=== PATIENT | female | born 1940 | race Caucasian/White ===

== ENCOUNTER 2017-04-03 10:52 | Inpatient (IN) | payer OTHER ==
[~2017-04-03] VITALS: Ht 165.1 cm; Wt 84.1 kg
[~2017-04-03 10:52] MED LIST: GABA-497 PO; OXY5T PO; [UNRECOGNIZED DRUG - CODE] TD
[2017-04-03 11:46] LABS: Basophils # (auto) 0 uL; Basophils % (auto) 0.6 % (0.0-2.0); CONDITION Y; Eosinophils # (auto) 0.3 uL; Eosinophils % (auto) 4.4 % (0.0-7.0); Hemoglobin 12.8 g/dL (12.2-16.2); Lymphocytes # (auto) 0.8 uL; Lymphocytes % (auto) 11.9 % (10.0-50.0); Mean Corpuscular Hgb Conc. 33.6 g/dL (32.0-36.0); Mean Corpuscular Volume 86.5 fL (80.0-100.0); Mean Platelet Volume 8.2 fL (7.4-10.4); Monocytes # (auto) 0.4 uL; Monocytes % (auto) 6.1 % (0.0-12.0); Neutrophils # (auto) 5.1 uL; Platelet Count (auto) 318 10^3/uL (140-450); Red Cell Distribution Width 13.7 % (11.6-16.0); White Blood Cell 6.6 10^3/uL (4.4-10.8)
[2017-04-03 12:05] LABS: Albumin 3.1 g/dL (3.4-5.0); Anion Gap 8 (5-15); Aspartate Aminotransferase 42 U/L (15-37); BUN/Creatinine Ratio 14.7; Blood Urea Nitrogen 10 mg/dL (7-18); Calcium 8.4 mg/dL (8.5-10.1); Carbon Dioxide 27 mmol/L (21-32); Chloride 105 mmol/L (98-107); GFR African American 108 mL/min; GFR Non-African American 90 mL/min; Glucose 115 mg/dL (74-106); Magnesium 2.3 mg/dL (1.6-2.6); Potassium 3.9 mmol/L (3.5-5.1); Sodium 140 mmol/L (136-145)
[2017-04-03 12:14] LABS: Alkaline Phosphatase 95 U/L (45-117); Bilirubin, Total 0.3 mg/dL (0.2-1.0); Total Protein 7.4 g/dL (6.4-8.2)
[2017-04-03 12:21] LABS: B-Type Natriuretic Peptide 53.27 pg/mL (0-100)
[2017-04-03 12:28] LABS: Temperature: 22.4 C (20.0-25.0)
[2017-04-03] MEDS ORDERED: ONDANSETRON HCL 4 MG/2 ML VIAL IV ONE (12:30)
[2017-04-03] MEDS ORDERED: MORPHINE SULF INJ 2 MG/ML SYRINGE 1ML IV ONE (12:30)
[2017-04-03 13:34] LABS: Urine Bilirubin Negative (Negative); Urine Blood 2+ /uL (Negative); Urine Color Yellow (Yellow); Urine Glucose Normal (Normal); Urine Ketone Negative (Negative); Urine Mucus FEW (None Seen); Urine Nitrite Negative (Negative); Urine RBC 20 /hpf (0 - 4); Urine Squamous Epithelial Cell FEW /hpf (<5); Urine Urobilinogen Normal (Negative)
[2017-04-03] MEDS ORDERED: TEMAZEPAM 15 MG CAP PO PRN (15:45)
[2017-04-03] MEDS ORDERED: DOCUSATE SOD 100 MG CAP PO PRN (15:45)
[2017-04-03] MEDS ORDERED: ACETAMINOPHEN 325 MG TAB PO PRN (15:45)
[2017-04-03] MEDS ORDERED: fentaNYL 25MCG/HR 25 MCG/HR PAT TD SCH (16:15)
[2017-04-03 16:49] LABS: INR 1.2 (0.9-1.15); Prothrombin Time 13.1 sec (9.37-12.3)
[2017-04-03] MEDS: GABAPENTIN 300 MG CAP PO SCH ×2 (17:00→21:48)
[2017-04-03] MEDS: BOOST PLUS 8 ounce PO SCH (18:00)
[2017-04-03 18:08] VITALS: BP 159/73
[2017-04-03] MEDS: MORPHINE SULF INJ 2 MG/ML SYRINGE 1ML IV PRN (20:15)
[2017-04-03] MEDS: ONDANSETRON HCL 4 MG/2 ML VIAL IV PRN (20:15)
[2017-04-03] MEDS: FAMOTIDINE 20 MG TAB PO SCH (21:48)
[2017-04-03] MEDS: SODIUM CHLOR 0.9% PF (SALINE LOCK) 10ML VIAL IV SCH (21:48)
[2017-04-03] MEDS: oxyCODONE ER 10 MG TAB PO SCH (21:48)
[2017-04-03 22:00] VITALS: BP 134/72
[2017-04-04] MEDS: GABAPENTIN 300 MG CAP PO SCH ×4 (04:38→22:26)
[2017-04-04] MEDS: SODIUM CHLOR 0.9% PF (SALINE LOCK) 10ML VIAL IV SCH ×3 (04:38→22:26)
[2017-04-04 06:00] VITALS: BP 105/50
[2017-04-04 06:48] LABS: Basophils # (auto) 0 uL; Basophils % (auto) 0.3 % (0.0-2.0); CONDITION Y; Eosinophils # (auto) 0.3 uL; Eosinophils % (auto) 4.9 % (0.0-7.0); Hematocrit 31.8 % (36.0-46.0); Hemoglobin 10.7 g/dL (12.2-16.2); Lymphocytes % (auto) 15.9 % (10.0-50.0); Mean Corpuscular Hemoglobin 29.2 pg (28.0-32.0); Mean Corpuscular Hgb Conc. 33.7 g/dL (32.0-36.0); Mean Corpuscular Volume 86.8 fL (80.0-100.0); Mean Platelet Volume 8.4 fL (7.4-10.4); Monocytes # (auto) 0.5 uL; Monocytes % (auto) 8.6 % (0.0-12.0); Neutrophils # (auto) 4.4 uL; Neutrophils % (auto) 70.3 % (37.0-80.0); Platelet Count (auto) 274 10^3/uL (140-450); Red Cell Distribution Width 13.4 % (11.6-16.0); White Blood Cell 6.3 10^3/uL (4.4-10.8)
[2017-04-04 06:49] LABS: Albumin 2.7 g/dL (3.4-5.0); BUN/Creatinine Ratio 16.9; Bilirubin, Total 0.3 mg/dL (0.2-1.0); Calcium 8.1 mg/dL (8.5-10.1); Potassium 3.7 mmol/L (3.5-5.1); Total Protein 6.2 g/dL (6.4-8.2)
[2017-04-04] MEDS: BOOST PLUS 8 ounce PO SCH ×3 (08:00→18:18)
[2017-04-04 09:00] VITALS: BP 121/59
[2017-04-04] MEDS: ONDANSETRON HCL 4 MG/2 ML VIAL IV PRN ×2 (09:36→20:11)
[2017-04-04] MEDS: MORPHINE SULF INJ 2 MG/ML SYRINGE 1ML IV PRN ×2 (09:36→20:11)
[2017-04-04] MEDS: FAMOTIDINE 20 MG TAB PO SCH ×2 (10:48→22:26)
[2017-04-04] MEDS: MULTIPLE VITAMIN TAB PO SCH (10:48)
[2017-04-04] MEDS: oxyCODONE ER 10 MG TAB PO SCH ×2 (10:49→22:26)
[2017-04-04] MEDS ORDERED: LORazepam 0.5 MG TAB PO PRN (12:15)
[2017-04-04 13:00] VITALS: BP 147/69
[2017-04-04 17:00] VITALS: BP 139/73
[2017-04-04 21:39] VITALS: BP 140/68
[2017-04-05] MEDS: MORPHINE SULF INJ 2 MG/ML SYRINGE 1ML IV PRN ×2 (04:22→15:59)
[2017-04-05] MEDS: ONDANSETRON HCL 4 MG/2 ML VIAL IV PRN (04:22)
[2017-04-05 04:35] LABS: Basophils # (auto) 0 uL; Basophils % (auto) 0.3 % (0.0-2.0); CONDITION Y; Eosinophils # (auto) 0.4 uL; Eosinophils % (auto) 5.6 % (0.0-7.0); Hematocrit 34.1 % (36.0-46.0); Hemoglobin 11.4 g/dL (12.2-16.2); Lymphocytes # (auto) 1.1 uL; Lymphocytes % (auto) 17.5 % (10.0-50.0); Mean Corpuscular Hgb Conc. 33.5 g/dL (32.0-36.0); Mean Corpuscular Volume 86.4 fL (80.0-100.0); Mean Platelet Volume 8.1 fL (7.4-10.4); Monocytes # (auto) 0.6 uL; Monocytes % (auto) 9.2 % (0.0-12.0); Neutrophils # (auto) 4.4 uL; Neutrophils % (auto) 67.4 % (37.0-80.0); Platelet Count (auto) 298 10^3/uL (140-450); Red Cell Distribution Width 13.2 % (11.6-16.0); White Blood Cell 6.5 10^3/uL (4.4-10.8)
[2017-04-05 04:48] LABS: BUN/Creatinine Ratio 16.1; Calcium 8.6 mg/dL (8.5-10.1); Magnesium 2.2 mg/dL (1.6-2.6)
[2017-04-05 05:23] VITALS: BP 141/71
[2017-04-05] MEDS: GABAPENTIN 300 MG CAP PO SCH ×3 (06:31→15:59)
[2017-04-05] MEDS: SODIUM CHLOR 0.9% PF (SALINE LOCK) 10ML VIAL IV SCH ×2 (06:31→14:42)
[2017-04-05 09:48] VITALS: BP 134/69
[2017-04-05] MEDS: BOOST PLUS 8 ounce PO SCH ×2 (10:31→13:19)
[2017-04-05] MEDS: oxyCODONE ER 10 MG TAB PO SCH (10:31)
[2017-04-05] MEDS: MULTIPLE VITAMIN TAB PO SCH (10:31)
[2017-04-05] MEDS: FAMOTIDINE 20 MG TAB PO SCH (10:31)
[2017-04-05] MEDS ORDERED: LIDOCAINE 1% HCL (LOCAL ANESTH.) INJ 20ML MDV ONE (11:46)
[2017-04-05 13:00] VITALS: BP 167/90
[2017-04-05 14:44] VITALS: BP 160/70
[2017-04-05 17:05] VITALS: BP 161/70
== END 2017-04-05 16:20 | disposition home health service (06) | DRG 181 ==
LOC: ER 10:54 → OVERFLOW 10:55 → TELE-E-ADS 17:29 → WEST WING 20:16
PROVIDERS: ADMIT Internal Medicine; ATTEND Internal Medicine
PROC: 0W9B3ZZ Drainage of Left Pleural Cavity, Percutaneous Approach (ICD-10-PCS; principal; 2017-04-05)
PROC: BB4BZZZ Ultrasonography of Pleura (ICD-10-PCS; 2017-04-05)
DX: C78.00 Secondary malignant neoplasm of unspecified lung (principal); C78.7 Secondary malignant neoplasm of liver and intrahepatic bile duct; J91.0 Malignant pleural effusion; C79.51 Secondary malignant neoplasm of bone; Z99.81 Dependence on supplemental oxygen; G89.4 Chronic pain syndrome; I70.0 Atherosclerosis of aorta; Z90.13 Acquired absence of bilateral breasts and nipples; Z85.3 Personal history of malignant neoplasm of breast
CPT/HCPCS: 36415; 71010; 76604; 76942; 80048; 80053; 81001; 83605; 83735; 83880; 84484; 85025; 85610; 87040; 87081; 93005; 94761; 96374; 96375; J1642; J2001; J2405

== ENCOUNTER 2017-06-16 16:03 | Inpatient (IN) | payer OTHER ==
[~2017-06-16] VITALS: Ht 167.6 cm; Wt 72.8 kg
[2017-06-16] MEDS ORDERED: NITROGLYCERIN 0.4 MG SL TAB SL PRN (17:15)
[2017-06-16] MEDS ORDERED: MORPHINE SULFATE 10 MG/ML INJ 1ML SDV IV PRN (17:15)
[2017-06-16] MEDS ORDERED: ONDANSETRON HCL 4 MG/2 ML VIAL IV PRN (17:15)
[2017-06-16] MEDS ORDERED: ACETAMINOPHEN 500 MG TAB PO PRN (17:15)
[2017-06-16] MEDS: GABAPENTIN 300 MG CAP PO SCH ×2 (18:07→21:13)
[2017-06-16] MEDS: CEPHALEXIN 250 MG CAP PO SCH (18:07)
[2017-06-16 18:12] LABS: Basophils # (auto) 0.1 uL; Eosinophils # (auto) 0.2 uL; Eosinophils % (auto) 3.6 % (0.0-7.0); Hematocrit 34.3 % (36.0-46.0); Hemoglobin 11.4 g/dL (12.2-16.2); Lymphocytes # (auto) 0.8 uL; Lymphocytes % (auto) 14.1 % (10.0-50.0); Mean Corpuscular Hemoglobin 28.9 pg (28.0-32.0); Mean Corpuscular Hgb Conc. 33.3 g/dL (32.0-36.0); Mean Corpuscular Volume 86.7 fL (80.0-100.0); Monocytes # (auto) 0.5 uL; Monocytes % (auto) 8.3 % (0.0-12.0); Neutrophils # (auto) 4.3 uL; Nucleated Red Blood Cells % 0.1 %; Platelet Count (auto) 230 10^3/uL (140-450); Red Blood Cells 3.95 10^6/uL (4.0-5.20); Red Cell Distribution Width 14.6 % (11.8-14.3); White Blood Cell 5.9 10^3/uL (4.4-10.8)
[2017-06-16 18:28] LABS: BUN/Creatinine Ratio 20.7; Potassium 4.4 mmol/L (3.5-5.1)
[2017-06-16 18:29] LABS: INR 0.94 (0.9-1.15); Partial Thromboplastin Time 22.2 sec (22.64-33.71); Prothrombin Time 10.2 sec (9.37-12.3)
[2017-06-16 20:00] VITALS: BP 123/66
[2017-06-16] MEDS: oxyCODONE ER 10 MG TAB PO SCH (21:13)
[2017-06-16] MEDS: SULFAMETHOX W/TRIMETH(800/160MG) DS TAB PO SCH (21:14)
[2017-06-16 21:30] VITALS: BP 123/66
[2017-06-17] MEDS: CEPHALEXIN 250 MG CAP PO SCH ×5 (00:43→18:00)
[2017-06-17] MEDS ORDERED: D5W/SOD CHLO 0.9% 1,000 ML IV ONE (02:30)
[2017-06-17 05:00] VITALS: BP 101/52
[2017-06-17] MEDS: GABAPENTIN 300 MG CAP PO SCH ×4 (06:46→22:26)
[2017-06-17] MEDS: oxyCODONE ER 10 MG TAB PO SCH ×4 (08:22→22:25)
[2017-06-17] MEDS: SULFAMETHOX W/TRIMETH(800/160MG) DS TAB PO SCH ×2 (08:22→22:25)
[2017-06-17] MEDS ORDERED: TALC (STERILE) 5GM SUSP PL ONE ×2 (09:00→12:00)
[2017-06-17] MEDS ORDERED: LIDOCAINE 2%HCL (LOCAL ANESTH.) INJ 20ML MDV IJ ONE (09:00)
[2017-06-17 09:53] VITALS: BP 114/60
[2017-06-17 13:00] VITALS: BP 113/62
[2017-06-17] MEDS ORDERED: HYDROcodone-ACET 5/325MG TAB PO PRN (14:00)
[2017-06-17 17:12] VITALS: BP 120/62
[2017-06-17 20:00] VITALS: BP 139/76
[2017-06-17 21:36] VITALS: BP 139/76
[2017-06-18] VITALS (8 sets, daily range): BP systolic 96–153; BP diastolic 44–92
[2017-06-18] MEDS: CEPHALEXIN 250 MG CAP PO SCH ×3 (01:25→12:11)
[2017-06-18] MEDS: oxyCODONE ER 10 MG TAB PO SCH ×6 (01:32→22:10)
[2017-06-18] MEDS ORDERED: IPRATROPIUM BROM 0.5 MG/2.5ML INH SOL NEB PRN ×2 (04:30→14:30)
[2017-06-18] MEDS: ALBUTEROL SULF 2.5 MG/0.5ML(0.5%) NEB SOLN NEB PRN (05:45)
[2017-06-18] MEDS: HYDROmorphone HCL 2 MG/ML VL IV PRN ×2 (05:51→20:02)
[2017-06-18] MEDS: GABAPENTIN 300 MG CAP PO SCH ×4 (05:52→22:10)
[2017-06-18] MEDS: SULFAMETHOX W/TRIMETH(800/160MG) DS TAB PO SCH (09:21)
[2017-06-18] MEDS: LEVOFLOXACIN 500MG 100 ML IV SCH (14:56)
[2017-06-18 16:11] LABS: Basophils # (auto) 0 uL; Basophils % (auto) 0.1 % (0.0-2.0); Eosinophils # (auto) 0 uL; Hematocrit 33.2 % (36.0-46.0); Hemoglobin 10.9 g/dL (12.2-16.2); Lymphocytes # (auto) 0.4 uL; Lymphocytes % (auto) 3.5 % (10.0-50.0); Mean Corpuscular Hemoglobin 28.3 pg (28.0-32.0); Mean Corpuscular Hgb Conc. 32.7 g/dL (32.0-36.0); Mean Corpuscular Volume 86.4 fL (80.0-100.0); Monocytes % (auto) 8.2 % (0.0-12.0); Neutrophils # (auto) 10.7 uL; Neutrophils % (auto) 88.2 % (37.0-80.0); Nucleated Red Blood Cells % 0.1 %; Platelet Count (auto) 213 10^3/uL (140-450); Red Blood Cells 3.84 10^6/uL (4.0-5.20); Red Cell Distribution Width 14.8 % (11.8-14.3); White Blood Cell 12.1 10^3/uL (4.4-10.8)
[2017-06-18 16:32] LABS: BUN/Creatinine Ratio 17.6; Calcium 8.5 mg/dL (8.5-10.1)
[2017-06-19] MEDS: HYDROmorphone HCL 2 MG/ML VL IV PRN ×2 (01:14→12:47)
[2017-06-19] MEDS: oxyCODONE ER 10 MG TAB PO SCH ×5 (02:50→18:02)
[2017-06-19 05:53] VITALS: BP 114/59
[2017-06-19] MEDS: GABAPENTIN 300 MG CAP PO SCH ×3 (06:29→18:02)
[2017-06-19 07:53] LABS: Basophils # (auto) 0 uL; Eosinophils # (auto) 0 uL; Hematocrit 33.7 % (36.0-46.0); Hemoglobin 11.3 g/dL (12.2-16.2); Lymphocytes # (auto) 0.5 uL; Lymphocytes % (auto) 3.8 % (10.0-50.0); Mean Corpuscular Hemoglobin 28.8 pg (28.0-32.0); Mean Corpuscular Hgb Conc. 33.6 g/dL (32.0-36.0); Mean Corpuscular Volume 85.8 fL (80.0-100.0); Monocytes # (auto) 1.1 uL; Monocytes % (auto) 8.2 % (0.0-12.0); Neutrophils # (auto) 11.5 uL; Nucleated Red Blood Cells % 0.1 %; Platelet Count (auto) 215 10^3/uL (140-450); Red Blood Cells 3.93 10^6/uL (4.0-5.20); White Blood Cell 13.1 10^3/uL (4.4-10.8)
[2017-06-19 08:10] LABS: BUN/Creatinine Ratio 23.9; Calcium 9.2 mg/dL (8.5-10.1); Potassium 4.4 mmol/L (3.5-5.1)
[2017-06-19 09:00] VITALS: BP 129/68
[2017-06-19] MEDS: LEVOFLOXACIN 500MG 100 ML IV SCH (10:56)
[2017-06-19] MEDS ORDERED: LEVO500T21 PO (10:58)
[2017-06-19] MEDS ORDERED: ALBUAER3 IN (10:58)
[2017-06-19 13:00] VITALS: BP 108/66
[2017-06-19] MEDS ORDERED: LIDOCAINE 1% HCL (LOCAL ANESTH.) INJ 20ML MDV ONE (14:15)
[2017-06-19] MEDS: ALBUTEROL SULF 2.5 MG/0.5ML(0.5%) NEB SOLN NEB PRN (19:05)
[2017-06-19 22:00] VITALS: BP 124/54
== END 2017-06-19 19:40 | disposition home health service (06) | DRG 163 ==
LOC: EAST 16:03 → TELE-CENTR 18:15
PROVIDERS: ADMIT Hospitalist; ATTEND Internal Medicine
PROC: 0B5P3ZZ Destruction of Left Pleura, Percutaneous Approach (ICD-10-PCS; principal; 2017-06-18)
PROC: 0B9P30Z Drainage of Left Pleura with Drainage Device, Percutaneous Approach (ICD-10-PCS; 2017-06-18)
DX: C34.90 Malignant neoplasm of unspecified part of unspecified bronchus or lung (principal); J18.9 Pneumonia, unspecified organism; J90 Pleural effusion, not elsewhere classified; C50.919 Malignant neoplasm of unspecified site of unspecified female breast; G89.4 Chronic pain syndrome
CPT/HCPCS: 36415; 71010; 71020; 80048; 85025; 85610; 85730; 87081; 94640; J1642; J1956; J2001; J7042